=== PATIENT | male | born 1985 | race Two or more races ===

== ENCOUNTER 2021-03-27 02:07 | Emergency (ER) | payer OTHER ==
[~2021-03-27] VITALS: Ht 162.6 cm; Wt 61.2 kg
[2021-03-27] MEDS ORDERED: HYDROcodone-ACET 10/325MG TAB PO ONE (04:30)
[2021-03-27] MEDS ORDERED: ONDANSETRON ODT 4 MG TAB PO ONE (04:30)
[2021-03-27 07:50] VITALS: BP 127/78
== END 2021-03-27 08:43 | disposition home or self-care (01) ==
LOC: ER 02:07 → EDBD 02:07 → ER 08:43
DX: M62.838 Other muscle spasm (principal); M54.9 Dorsalgia, unspecified; M54.2 Cervicalgia; V43.52XA Car driver injured in collision with other type car in traffic accident, initial encounter; Y93.89 Activity, other specified; Y92.410 Unspecified street and highway as the place of occurrence of the external cause; Y99.8 Other external cause status
CPT/HCPCS: 70450; 71250; 72125; 74176